=== PATIENT | female | born 1960 | race Caucasian/White ===

== ENCOUNTER 2017-05-27 07:40 | Outpatient (CLI) | payer BC | END 2017-05-27 07:41 | disposition home or self-care (01) | LOC: BICULT 07:40 | PROVIDERS: ATTEND Physician Assistant | DX: R79.89 Other specified abnormal findings of blood chemistry (principal) | CPT/HCPCS: 76705 ==

== ENCOUNTER 2018-03-31 14:53 | Outpatient (CLI) | payer BC | END 2018-03-31 14:54 | disposition home or self-care (01) | LOC: BICMAMMO 14:53 | PROVIDERS: ATTEND Internal Medicine | DX: Z12.31 Encounter for screening mammogram for malignant neoplasm of breast (principal); Z80.3 Family history of malignant neoplasm of breast | CPT/HCPCS: 77063; 77067 ==

== ENCOUNTER 2018-10-04 10:35 | Outpatient (CLI) | payer BC ==
--- NOTE | 2018-10-04 12:16 | MRI ---
MRI Cervical Spine WO Con History: [Cervical radiculopathy] Comparison: MRI cervical spine 2015 Findings: Cerebral tonsils terminate at the level of the foramen magnum. Cord signal is normal. No cervical adenopathy. Paraspinal musculature is symmetric. No marrow infiltrative process. Levels are as follows: C2/C3: Disc desiccation. Mild facet arthrosis. Mild posterior annular scarring. No neural foraminal o r spinal canal narrowing. C3/C4: Mild degenerative disc space height loss. Mild uncinate process hypertrophy area and appears b e fusion of the left facet joint. Moderate left neural foraminal narrowing. C4/C5: Severe facet arthropathy. There is anterolisthesis approximately 4 mm. Moderate to severe righ t and mild left neural foraminal narrowing. Spinal canal is not significantly narrowed. C5/C6: Advanced degenerative disc space height loss. Circumferential disc osteophyte complex. Mild fa cet arthropathy. Mild effacement ventral CSF space the canal measuring over 1 cm. Moderate bilateral neural foraminal narrowing. C6/C7: Moderate degenerative disc space height loss. Circumferential disc osteophyte complex. Moderat e to severe bilateral neural foraminal narrowing. There is effacement of ventral CSF space and abutment of the cord. Spinal canal is narrowed to 7 mm. C7/T1: Degenerative disc space height loss. Severe facet arthropathy. Anterolisthesis approximately 4 mm. Moderate bilateral neural foraminal narrowing. Spinal canal measures approximately 8 mm. Impression: Progressive degenerative changes since 2014 with multilevel neural foraminal and spinal c anal narrowing as well as worsening listhesis.
== END 2018-10-04 10:36 | disposition home or self-care (01) ==
LOC: SCSMRI 10:35
PROVIDERS: ATTEND Internal Medicine
DX: M47.22 Other spondylosis with radiculopathy, cervical region (principal); M43.12 Spondylolisthesis, cervical region; M48.02 Spinal stenosis, cervical region
CPT/HCPCS: 72141

== ENCOUNTER 2024-04-28 09:03 | Outpatient (CLI) | payer OTHER | END 2024-04-28 09:04 | disposition home or self-care (01) | LOC: BICCT 09:03 | PROVIDERS: ATTEND Internal Medicine | DX: E78.01 Familial hypercholesterolemia (principal) | CPT/HCPCS: 75571 ==